=== PATIENT | female | born 1950 | race American Indian/Alaskan Native ===

== ENCOUNTER 2016-11-23 07:43 | Outpatient (CLI) | payer MEDICARE ==
--- NOTE | 2016-11-29 08:35 | PET Report ---
PET/CT:11/23/16 07:43:00 CLINICAL: Multiple pulmonary nodules. History of breast cancer status post right partial mastectomy and radiation therapy. RADIOPHARMACEUTICAL: 14.8mCi F18-FDG. COMPARISON: 11/26/09 CT Chest TECHNIQUE- Following intravenous injection of F-18 FDG and an approximately 60 minute uptake period, CT and PET images from the mid skull to the upper thighs were acquired with the patient in the fasted state. No contrast was administered. The CT protocol used for this PET CT study is designed for attenuation correction and anatomic localization of PET abnormalities. This bridge inspector CT is not desired to produce and cannot replace, [id number] diagnostic CT scans with specific imaging protocols for different body parts and indications. Plasma glucose at the time of this test: 106g/dl. The standardized uptake values (SUV) are normalized to patient body weight and indicate the highest activity concentration (SUV max) in a given disease site. FINDINGS: Brain--Physiologic FDG uptake in the visualized regions of the brain. Neck--Physiologic FDG uptake . Chest--Physiologic FDG uptake in mediastinal blood pool and myocardium. Lungs--No abnormal uptake. Increased size and number of noncalcified and calcified non-FDG avid lung masses. Three new subcentimeter noncalcified left upper lobe lung nodules and several new calcified and noncalcified right upper lobe and right lower lobe lung nodules. The dominant lung mass is in the lingula and measures 5.1 x 3.3 compared to 4.0 x 3.2 cm. It has become heavily calcified since the 2010 exam. Unsuccessful lung biopsies were attempted in September 2010 and 2009. Pleura/pericardium--No abnormal uptake. Thoracic nodes--No abnormal uptake. No lymphadenopathy and no calcified mediastinal or hilar lymph nodes. Hepatobiliary--No abnormal uptake. Liver background SUV mean, as a reference for comparing FDG studies, is 3.7 . No liver mass. Spleen--No abnormal uptake. Pancreas--No abnormal uptake. Adrenal Glands--No abnormal uptake. Kidneys/Ureters/Bladder--No abnormal uptake. Abdominopelvic Nodes--No abnormal uptake. Bowel/Peritoneum/Mesentery--No abnormal uptake. Pelvic organs--No abnormal uptake. Bones/Soft Tissues--No abnormal uptake. No suspicious bone lesions. Other findings: Left Biuitb-y-Sngp tip is in the SVC. IMPRESSION- 1. Bilateral calcified and noncalcified non-FDG avid lung nodules and masses are probably benign based on the chronic nature of several. 2. No abnormal FDG uptake.
== END 2016-11-23 07:44 | disposition home or self-care (01) ==
LOC: PET 07:43
PROVIDERS: ATTEND Internal Medicine
DX: R91.8 Other nonspecific abnormal finding of lung field (principal); Z85.41 Personal history of malignant neoplasm of cervix uteri; Z85.3 Personal history of malignant neoplasm of breast; Z90.11 Acquired absence of right breast and nipple
CPT/HCPCS: 78815; 82962; A9552